=== PATIENT | male | born 1990 | race Caucasian/White ===

== ENCOUNTER 2024-10-31 10:52 | Outpatient (CLI) | payer BC, SELFPAY | END 2024-10-31 10:53 | disposition home or self-care (01) | PROVIDERS: PCP Nurse Practitioner Family; Visit Provider Nurse Practitioner Family | DX: Z00.00 Encounter for general adult medical examination without abnormal findings (principal); Z13.6 Encounter for screening for cardiovascular disorders; Z13.1 Encounter for screening for diabetes mellitus | CPT/HCPCS: 80061; 82947 ==